=== PATIENT | female | born 1965 | race African-American/Black ===

== ENCOUNTER 2017-07-27 17:14 | Emergency (ER) | payer OTHER ==
[~2017-07-27] VITALS: Ht 157.5 cm; Wt 88.5 kg
[~2017-07-27 17:14] MED LIST: HYDR-971 PO
[2017-07-27] MEDS ORDERED: fentaNYL PF VIAL 100 MCG/2 ML VIAL IV PRN (17:45)
[2017-07-27] MEDS ORDERED: LABETALOL 20 MG/4 ML DISP.SYRIN. IVP ONE (18:15)
--- NOTE | 2017-07-27 18:20 | RAD ---
CT of the head without contrast History:htn, headaches x 2 weeks, prior sent Technique: Standard noncontrast images are obtained. Exposure: One or more of the following individualized dose reduction techniques were utilized for this examination: 1. Automated exposure control 2. Adjustment of the mA and/or kV according to patient size 3. Use of iterative reconstruction technique. Comparison: July 14, 2009 Findings: Posterior fossa is unremarkable. No evidence of acute intracranial hemorrhage, mass effect, midline shift or abnormal extra-axial fluid collection. Palmer-white matter distinction is intact. Ventricles unremarkable and symmetric Visualized orbits are unremarkable. Visualized paranasal sinuses and mastoids are clear. No acute calvarial abnormality Impression: No evidence of acute intracranial abnormality. Electronically signed by: Reza Paez MD (07/27/2017 6:17 PM) [facility]
[2017-07-27 18:21] LABS: BASO # 0.1 x10^3/uL (0.0-0.2); BASO % 1 % (0-3); EOS % 5 % (0-3); HEMATOCRIT 41.5 % (36.0-47.0); HEMOGLOBIN 14.5 g/dL (12.0-15.5); LYMPH # 2.4 x10^3/uL (1.0-4.8); LYMPH % 25 % (24-48); MEAN CORPUSCULAR HEMOGLOBIN 32 pg (25-35); MEAN CORPUSCULAR HGB CONC 35 g/dL (31-37); MEAN CORPUSCULAR VOLUME 91 fL (79-100); MONO % 7 % (0-9); NEUT % 62 % (31-73); PLATELET COUNT 304 x10^3/uL (140-400); RED BLOOD COUNT 4.54 x10^6/uL (3.50-5.40); RED CELL DISTRIBUTION WIDTH 14.7 % (11.5-14.5); WHITE BLOOD COUNT 9.6 x10^3/uL (4.0-11.0)
[2017-07-27 18:32] LABS: INR 0.9 (0.8-1.1); PROTHROMBIN TIME PATIENT 11.9 SEC (11.7-14.0)
[2017-07-27 18:35] LABS: CALCIUM 10.4 mg/dL (8.5-10.1); CREATININE 0.8 mg/dL (0.6-1.0); GFR 91.9
[2017-07-27 18:36] LABS: POTASSIUM 3.8 mmol/L (3.5-5.1)
[2017-07-27 18:46] LABS: ALBUMIN/GLOBULIN RATIO 0.8 (1.0-1.7); TOTAL PROTEIN 8.9 g/dL (6.4-8.2)
[2017-07-27 19:21] VITALS: BP 163/89
--- NOTE | 2017-07-27 19:33 | PHYS DOC ---
Past Medical History Past Medical History: Hypertension Past Surgical History: No Surgical History Alcohol Use: Occasionally Drug Use: None Adult General Chief Complaint Chief Complaint: HYPERTENSION HPI HPI Patient is a 52 year old female who presents with headache & hypertension. She reports 2 week history of bitemporal throbbing/aching headache, not sudden in onset & not the worst headache of her life. She reports associated blurred vision. She denies fevers/chills, neck stiffness, chest pain, shortness of breath, extremity numbness/weakness. She reports blood pressure has been elevated, recently started taking lisinopril 2 weeks ago, states she has missed some doses but is trying to be more compliant. She denies use of street drugs. PCP is at [facility]. Review of Systems Review of Systems Constitutional: Denies fever or chills Eyes: Reports blurred vision HENT: Denies nasal congestion or sore throat Respiratory: Denies cough or shortness of breath Cardiovascular: Denies chest pain or edema GI: Denies abdominal pain, nausea, vomiting, bloody stools or diarrhea : Denies dysuria or hematuria Musculoskeletal: Denies back pain or joint pain Integument: Denies rash or skin lesions Neurologic: Reports headache, denies focal weakness or sensory changes Current Medications Current Medications Current Medications Medications (Trade) Dose Ordered Sig/Salazar Start Time Stop Time Status Last Admin Dose Admin Fentanyl Citrate (Fentanyl 2ml Vial) 50 mcg PRN Q15MIN PRN 07/27/17 17:45 07/27/17 19:44 DC 07/27/17 17:54 50 MCG Labetalol HCl (Normodyne) 10 mg 1X ONCE 07/27/17 18:15 07/27/17 18:16 DC 07/27/17 17:53 10 MG Allergies Allergies Allergies Coded Allergies Type Severity Reaction Last Updated Verified indomethacin Allergy Severe Swelling 07/09/16 Yes ceftriaxone Allergy Intermediate swelling hives 07/24/15 No Physical Exam Physical Exam Constitutional: obese, no acute distress, non-toxic appearance. HENT: Normocephalic, atraumatic, bilateral external ears normal, oropharynx moist, nose normal. Eyes: PERRLA, EOMI, conjunctiva normal, no discharge. Neck: supple, no stridor. no meningismus Cardiovascular: RRR, no murmurs, no edema. Lungs & Thorax: LCTAB, no wheezing, no respiratory distress. Abdomen: soft, nontender, nondistended. Skin: Warm, dry, no erythema, no rash. Back: No tenderness. Extremities: No tenderness, no edema. Neurologic: Alert and oriented X 3, CN2-12 grossly intact, symmetric strength/ sensation to upper & lower extremities. no focal deficits noted. Psychologic: Affect normal, judgement normal, mood normal. Current Patient Data Vital Signs Vital Signs Date Time Temp Pulse Resp B/P (MAP) Pulse Ox O2 Delivery O2 Flow Rate FiO2 07/27/17 19:21 88 163/89 (113) 93 Room Air 07/27/17 18:41 16 07/27/17 17:20 98.5 98.5 Lab Values Laboratory Tests Test 07/27/17 17:34 White Blood Count 9.6 x10^3/uL (4.0-11.0) Red Blood Count 4.54 x10^6/uL (3.50-5.40) Hemoglobin 14.5 g/dL (12.0-15.5) Hematocrit 41.5 % (36.0-47.0) Mean Corpuscular Volume 91 fL (79-100) Mean Corpuscular Hemoglobin 32 pg (25-35) Mean Corpuscular Hemoglobin Concent 35 g/dL (31-37) Red Cell Distribution Width 14.7 % (11.5-14.5) H Platelet Count 304 x10^3/uL (140-400) Neutrophils (%) (Auto) 62 % (31-73) Lymphocytes (%) (Auto) 25 % (24-48) Monocytes (%) (Auto) 7 % (0-9) Eosinophils (%) (Auto) 5 % (0-3) H Basophils (%) (Auto) 1 % (0-3) Neutrophils # (Auto) 6.0 x10^3uL (1.8-7.7) Lymphocytes # (Auto) 2.4 x10^3/uL (1.0-4.8) Monocytes # (Auto) 0.7 x10^3/uL (0.0-1.1) Eosinophils # (Auto) 0.4 x10^3/uL (0.0-0.7) Basophils # (Auto) 0.1 x10^3/uL (0.0-0.2) Prothrombin Time 11.9 SEC (11.7-14.0) Prothrombin Time INR 0.9 (0.8-1.1) PTT 28 SEC (24-38) Sodium Level 139 mmol/L (136-145) Potassium Level 3.8 mmol/L (3.5-5.1) Chloride Level 100 mmol/L (98-107) Carbon Dioxide Level 30 mmol/L (21-32) Anion Gap 9 (6-14) Blood Urea Nitrogen 16 mg/dL (7-20) Creatinine 0.8 mg/dL (0.6-1.0) Estimated GFR (Cockcroft-Gault) 91.9 BUN/Creatinine Ratio 20 (6-20) Glucose Level 108 mg/dL (70-99) H Calcium Level 10.4 mg/dL (8.5-10.1) H Total Bilirubin 1.0 mg/dL (0.2-1.0) Aspartate Amino Transferase (AST) 31 U/L (15-37) Alanine Aminotransferase (ALT) 19 U/L (14-59) Alkaline Phosphatase 59 U/L (46-116) Troponin I Quantitative < 0.017 ng/mL (0.000-0.055) FF-Rqf-L-Type Natriuretic Peptide 41 pg/mL (0-124) Total Protein 8.9 g/dL (6.4-8.2) H Albumin 4.0 g/dL (3.4-5.0) Albumin/Globulin Ratio 0.8 (1.0-1.7) L Laboratory Tests 07/27/17 17:34 Laboratory Tests 07/27/17 17:34 EKG EKG Interpreted by me: Sinus tachycardia rate 110, no acute ST or T wave changes, persistent T-wave 1, aVL, 2, V4 through V6, no significant change from 07/09/2016 , LVH, normal intervals, no ectopy.[] Radiology/Procedures Radiology/Procedures PROCEDURE: CT HEAD WO CONTRAST CT of the head without contrast History:htn, headaches x 2 weeks, prior sent Technique: Standard noncontrast images are obtained. Exposure: One or more of the following individualized dose reduction techniques were utilized for this examination: 1. Automated exposure control 2. Adjustment of the mA and/or kV according to patient size 3. Use of iterative reconstruction technique. Comparison: July 14, 2009 Findings: Posterior fossa is unremarkable. No evidence of acute intracranial hemorrhage, mass effect, midline shift or abnormal extra-axial fluid collection. Palmer-white matter distinction is intact. Ventricles unremarkable and symmetric Visualized orbits are unremarkable. Visualized paranasal sinuses and mastoids are clear. No acute calvarial abnormality Impression: No evidence of acute intracranial abnormality. Electronically signed by: Reza Paez MD (07/27/2017 6:17 PM) [facility] DICTATED and SIGNED BY: REZA PAEZ MD DATE: 07/27/171810 CXR portable: interpreted by me: no cardiomegaly, no infiltrate, no pneumothorax, no acute process.[] Course & Med Decision Making Course & Med Decision Making Pertinent Labs and Imaging studies reviewed. (See chart for details) The patient presents with elevated blood pressure & headache. Well appearing with normal neurologic exam. Gave labetalol & pain medication. Obtained labs, EKG, head CT. She has no evidence of acute intracranial process. Her blood pressure improved with treatment here & her symptoms essentially resolved. She was tachycardic at time of arrival, which resolved with treatment of her hypertension & her pain. She requested discharge home. Recommend increased compliance with lisinopril. Follow up with primary care in 2-3 days for blood pressure recheck & management. Come back for severe sudden onset headache, focal neuro deficit, altered mental status, chest pain, shortness of breath, any otherwise worsening condition. Discharged home in stable condition. [] Dragon Disclaimer Dragon Disclaimer This electronic medical record was generated, in whole or in part, using a voice recognition dictation system. Departure Departure Impression: Primary Impression: Hypertension Disposition: 01 HOME, SELF-CARE Condition: STABLE Referrals: GENI DOBSON MD (PCP) Patient Instructions: Hypertension, [id number] Additional Instructions: You were seen in the emergency department today for high blood pressure which improved after treatment here. Your tests did not show serious abnormality. Please take prescribed medication exactly as recommended by your doctor. Follow up in primary care clinic in 2-3 days. Come back for sudden onset severe headache, worst headache of your life, severe chest pain or shortness of breath, numbness or weakness in arms or legs, any otherwise worsening condition. CRISTIAN PERDOMO MD Jul 27, 2017 19:33
--- NOTE | 2017-07-28 06:11 | EKG ---
[facility] [address] [place] [id number] Test Date: 2017-07-27 Test Time: 17:19:14 Pat Name: JOHN ARGUETA Department: Room: Gender: F Floor Renovator: : 1965 Requested By: CRISTIAN PERDOMO Order Number: [id number] Reading MD: Measurements Intervals Jber Rate: 110 P: 2 MO: 126 QRS: 17 QRSD: 78 T: 176 QT: 296 QTc: 405 Interpretive Statements SINUS TACHYCARDIA LEFT ATRIAL ABNORMALITY LVH WITH REPOLARIZATION ABNORMALITY QRS(T) CONTOUR ABNORMALITY CANNOT RULE OUT ANTEROSEPTAL MYOCARDIAL DAMAGE RI6.01 Unconfirmed report No previous ECG available for comparison
--- NOTE | 2017-07-28 08:32 | RAD ---
Portable chest, 07/27/2017: History: Hypertension, headache Comparison is made to a study from April 08, 2016. The patient is rotated to the right. The heart is at the upper limits of normal in size. The pulmonary vascularity is normal. No pulmonary infiltrates are seen. There is no evidence of pleural fluid. IMPRESSION: No acute cardiopulmonary abnormality is detected.
== END 2017-07-27 19:44 | disposition home or self-care (01) ==
LOC: ER 17:14
DX: I10 Essential (primary) hypertension (principal); Z88.8 Allergy status to other drugs, medicaments and biological substances
CPT/HCPCS: 36415; 70450; 71010; 80053; 83880; 84484; 85025; 85610; 85730; 93005; 96374; 96375; 99285; J3010; J3490